=== PATIENT | female | born 1955 | race Caucasian/White ===

== ENCOUNTER 2019-09-27 12:39 | Outpatient (CLI) | payer OTHER | END 2019-09-27 15:00 | disposition home or self-care (01) | LOC: LAB 12:39 → EDBD 12:39 → LAB 15:00 | PROVIDERS: ATTEND Urology | DX: N30.00 Acute cystitis without hematuria (principal) ==

== ENCOUNTER 2019-09-27 13:22 | Outpatient (CLI) | payer OTHER | END 2019-09-27 13:27 | disposition home or self-care (01) | LOC: TOM 13:22 → EDBD 13:22 → TOM 13:27 | PROVIDERS: ATTEND Urology | DX: N20.0 Calculus of kidney (principal) ==

== ENCOUNTER → 2020-08-13 11:29 | Outpatient (CLI) | payer OTHER ==
[~2020-08-13 11:29] MED LIST: ATORVASTATIN CA20 MG; BETAXOLOL HCL10 MG PO; CLONAZEPAM1 MG PO; EZETIMIBE10 MG; OMEPRAZOLE20 MG
== END | disposition home or self-care (01) ==
LOC: LAB 11:29 → RAD 11:29
PROVIDERS: ATTEND Urology
DX: D68.9 Coagulation defect, unspecified (principal)

== ENCOUNTER 2020-08-22 08:47 | Inpatient (IN) | payer OTHER ==
[~2020-08-22 08:47] MED LIST changes: -ATORVASTATIN CA20 MG; -EZETIMIBE10 MG; -OMEPRAZOLE20 MG
[2020-08-23] MEDS ORDERED: ATORVASTATIN CA20 MG (07:57)
[2020-08-23] MEDS ORDERED: OMEPRAZOLE20 MG (07:57)
[2020-08-23] MEDS ORDERED: EZETIMIBE10 MG (07:57)
== END 2020-08-24 08:48 | disposition home or self-care (01) | DRG 661 ==
LOC: CIR.AMB 08:47 → SURG 18:43
PROVIDERS: ADMIT Urology; ATTEND Urology
PROC: BT1FYZZ Fluoroscopy of Left Kidney, Ureter and Bladder using Other Contrast (ICD-10-PCS; 2020-08-22)
PROC: 0TC13ZZ Extirpation of Matter from Left Kidney, Percutaneous Approach (ICD-10-PCS; principal; 2020-08-22 13:00)
DX: N20.0 Calculus of kidney (principal)